=== PATIENT | male | born 1990 | race Two or more races ===

== ENCOUNTER 2023-12-12 02:27 | Emergency (ER) | payer OTHER ==
[~2023-12-12] VITALS: Ht 167.6 cm; Wt 83.9 kg
[2023-12-12 02:52] VITALS: TEMP 98.7
[2023-12-12 03:58] VITALS: BP 141/89; O2SAT 100
== END 2023-12-12 03:59 | disposition home or self-care (01) ==
LOC: ER 02:37
DX: F19.10 Other psychoactive substance abuse, uncomplicated (principal)